=== PATIENT | female | born 1955 | race Caucasian/White ===

== ENCOUNTER → 2018-03-31 | Outpatient (CLI) | payer BC ==
--- NOTE | 2018-04-01 10:44 | MM ---
Reason for exam: screening (asymptomatic). Last mammogram was performed 1 year and 9 months ago. History: Patient is postmenopausal, has history of other cancer at age 53, and is nulliparous. Family history of breast cancer in paternal grandmother. Took estrogen for 1 year 1 month beginning at age 50. Physical Findings: A clinical breast exam by your physician is recommended on an annual basis and results should be correlated with mammographic findings. MG Screening Mammo w CAD Bilateral CC and MLO view(s) were taken. Prior study comparison: June 22, 2016, bilateral MG screening mammo w CAD. December 09, 2014, right breast MG work up mamm w CAD RT. The breast tissue is heterogeneously dense. This may lower the sensitivity of mammography. There is benign appearing round dystrophic calcifications bilaterally. There is chronic nodularity in the left breast. There is no discrete abnormality. ASSESSMENT: Benign, BI-RAD 2 RECOMMENDATION: Routine screening mammogram of both breasts in 1 year.
== END | disposition home or self-care (01) ==
LOC: RADMAMWWP 09:07
PROVIDERS: ATTEND Obstetrics & Gynecology
DX: Z12.31 Encounter for screening mammogram for malignant neoplasm of breast (principal)
CPT/HCPCS: 77067

== ENCOUNTER → 2019-08-04 | Outpatient (CLI) | payer BC ==
--- NOTE | 2019-08-07 10:57 | MM ---
Reason for exam: screening (asymptomatic). Last mammogram was performed 1 year and 4 months ago. History: Patient is postmenopausal, has history of other cancer at age 55, and is nulliparous. Family history of breast cancer in paternal grandmother. Took estrogen for 1 year 1 month beginning at age 50. Physical Findings: A clinical breast exam by your physician is recommended on an annual basis and results should be correlated with mammographic findings. MG Screening Mammo w CAD Bilateral CC and MLO view(s) were taken. Prior study comparison: March 31, 2018, bilateral MG screening mammo w CAD. June 22, 2016, bilateral MG screening mammo w CAD. There are scattered fibroglandular densities. No significant changes when compared with prior studies. ASSESSMENT: Benign, BI-RAD 2 RECOMMENDATION: Routine screening mammogram of both breasts in 1 year.
== END | disposition home or self-care (01) ==
LOC: RADMAMWWP 08:43
PROVIDERS: ATTEND Obstetrics & Gynecology
DX: Z12.31 Encounter for screening mammogram for malignant neoplasm of breast (principal)
CPT/HCPCS: 77067

== ENCOUNTER → 2020-08-30 | Outpatient (CLI) | payer BC ==
--- NOTE | 2020-08-31 11:01 | MM ---
Reason for exam: screening (asymptomatic). Last mammogram was performed 1 year and 1 month ago. History: Patient is postmenopausal, has history of other cancer at age 55, and is nulliparous. Family history of breast cancer in paternal grandmother. Took estrogen for 1 year 1 month beginning at age 50. Physical Findings: A clinical breast exam by your physician is recommended on an annual basis and results should be correlated with mammographic findings. MG Screening Mammo w CAD Bilateral CC and MLO view(s) were taken. Prior study comparison: August 04, 2019, bilateral MG screening mammo w CAD. March 31, 2018, bilateral MG screening mammo w CAD. June 22, 2016, bilateral MG screening mammo w CAD. The breast tissue is heterogeneously dense. This may lower the sensitivity of mammography. Finding: There are stable, fine, grouped/clustered calcifications in the posterior position of the right breast may have changed. New finding since June 22, 2016. ASSESSMENT: Incomplete: need additional imaging evaluation, BI-RAD 0 RECOMMENDATION: Special view mammogram of the right breast. If lesion persists on supplemental views, image directed ultrasound is recommended. [facility] will attempt to contact patient to return for supplemental views and ultrasound if indicated.
== END | disposition home or self-care (01) ==
LOC: RADMAMWWP 12:32
PROVIDERS: ATTEND Obstetrics & Gynecology
DX: Z12.31 Encounter for screening mammogram for malignant neoplasm of breast (principal)
CPT/HCPCS: 77067

== ENCOUNTER → 2020-09-15 | Outpatient (CLI) | payer BC ==
--- NOTE | 2020-09-16 10:32 | MM ---
Reason for exam: additional evaluation requested from abnormal screening. Last mammogram was performed 1 month ago. History: Patient is postmenopausal, has history of other cancer at age 55, and is nulliparous. Family history of breast cancer in paternal grandmother. Took estrogen for 1 year 1 month beginning at age 50. Physical Findings: Nurse did not find any significant physical abnormalities on exam. MG Work Up Mamm w CAD RT CC with magnification, LM with magnification, and LM view(s) were taken of the right breast. Prior study comparison: August 30, 2020, bilateral MG screening mammo w CAD. August 04, 2019, bilateral MG screening mammo w CAD. The breast tissue is heterogeneously dense. This may lower the sensitivity of mammography. Finding: There are increased, suspicious, coarse heterogeneous, grouped/clustered calcifications in the upper outer quadrant, posterior position of the right breast 9cm from the nipple. New finding since August 30, 2020 and August 04, 2019. These results were verbally communicated with the patient and result sheet given to the patient on 09/15/20. ASSESSMENT: Suspicious, BI-RAD 4 RECOMMENDATION: Stereotactic core biopsy of the right breast. (right breast calcification) Patient requests to call Dr. Oscar and discuss results. PRELIMINARY REPORT CALLED AND FAXED TO DR. OSCAR ON 09/16/20.
== END | disposition home or self-care (01) ==
LOC: RADMAMWWP 10:09
PROVIDERS: ATTEND Obstetrics & Gynecology
DX: R92.8 Other abnormal and inconclusive findings on diagnostic imaging of breast (principal)
CPT/HCPCS: 77065

== ENCOUNTER → 2020-10-03 | Day surgery (SDC) | payer BC ==
[2020-10-03 07:21] VITALS: RESP 16
[2020-10-03 08:37] VITALS: BP 115/78; PULSE 74; TEMP 98.1
--- NOTE | 2020-10-03 16:02 | MM ---
EXAMINATION TYPE: MG stereo VAD BX RT DATE OF EXAM: 10/03/2020 COMPARISON: 08/30/2020 CLINICAL HISTORY: Abnormal mammogram TECHNIQUE: Stereotactic guided core biopsy of right breast. FINDINGS: The procedure of stereotactic guided core biopsy was explained to the patient. Benefits, alternatives, and risks were discussed. An informed consent was then obtained. The shortness pathway for biopsy was chosen. Shortness pathway was lateral approach. Procedure was performed by radiology. Targeting was provided by radiology. Vacuum assisted biopsy device was utilized to obtain 7 core samples. Sample: Sample contains suspicious calcifications. The patient tolerated the procedure well without any immediate complication. The patient was kept in the radiology department for short stay after the procedure and then discharged home in stable condition. Post procedure mammogram : Post biopsy mammogram shows the clip to appear in satisfactory position relative to the targeted area of concern on the preprocedure images of the medial lateral view. There appears to be some migration of the clip approximately 1.2 cm deeper than targeted calcifications. There appear to be fewer targeted calcifications remaining following biopsy. IMPRESSION: 1. Successful stereotactic core biopsy right breast calcifications. Recommendations: 1. Recommendations are pending pathology results. Pathology Results: High Risk RIGHT BREAST, STEREOTACTIC CORE BIOPSY: Fibroadenomatoid hyperplasia with calcifications in a background of fibrocystic changes. Focal atypical lobular hyperplasia (ALH). Recommendation Surgical consult of the right breast. Note slight medial clip migration. Residual calcifications remain. MTDD
== END ==
LOC: RADMAMWWP 06:59
PROVIDERS: ATTEND Obstetrics & Gynecology
DX: N62 Hypertrophy of breast (principal); N60.11 Diffuse cystic mastopathy of right breast; R92.1 Mammographic calcification found on diagnostic imaging of breast; R92.8 Other abnormal and inconclusive findings on diagnostic imaging of breast
CPT/HCPCS: 88305; 19081; A4648; J2001

== ENCOUNTER → 2020-11-03 | Outpatient (CLI) | payer BC ==
[2020-11-03 14:23] VITALS: BP 121/75; PULSE 72; RESP 18; TEMP 98.3
--- NOTE | 2020-11-03 14:30 | P.GSHP ---
History of Present Illness H&P Date: 11/03/20 Chief Complaint: Stereotactic core biopsy on revealed focal atypical lobular hyper Nell is a 65 year old female seen in consultation for regarding a mammographic abnormality in her right breast for which she underwent stereotactic core biopsy which was positive for focal atypical lobular hyperplasia. The patient on underwent a bilateral screening mammogram. This revealed fine/groups clustered calcifications in the posterior position of the right breast which was considered to be a new finding since June 222015. She has had mammograms yearly since that time. Additional views were recommended. Additional views were performed and 2420, stereotactic right breast biopsy was recommended. This was performed on which revealed focal atypical lobular hyperplasia. The patient states that within the last 6 months she has noted that her right nipple started to become inverted. Prior to the mammogram she did not feel anything of concern in either breast. She is not complaining of any nipple discharge or skin changes. She is not complaining of any pain in her breast. Has not had any recent trauma or infection of the breast. She has not had any prior surgery to the breast. Caffeine: 1 diet coke/day nicotine: none, second hand smoke + chocolate: rare hormones: none Family History: patient basal cell cancer removed form face, aslo both of parents paternal grandmother: at 33 form breast cancer paternal aunt: breast cancer at 93 Hormonal History: menarche: 12 G0 menopause: 55 BCP: 10 years, IUD until menopause hormones: none Surgical history: 1. Bilateral knee arthroscopes 2. left hand carpal tunnel 3. lipoma right forearm 4. two lumbar lamenectomies 5. tonsil Medical history: None Social history: Nicotine: Negative, does have some secondhand smoke exposure Alcohol: Negative Drugs: Negative - Constitutional Constitutional: Denies chills, Denies fever - EENT Eyes: denies blurred vision, denies pain Ears: right: decreased hearing, deny: tinnitus Ears, nose, mouth and throat: Denies headache, Denies sore throat - Breasts Breasts: bilateral: as per HPI - Cardiovascular Cardiovascular: Denies chest pain, Denies shortness of breath - Respiratory Respiratory: Denies cough, Denies 7 - Gastrointestinal Gastrointestinal: Denies abdominal pain, Denies diarrhea, Denies nausea, Denies vomiting - Genitourinary (Female) Genitourinary: Denies dysuria, Denies hematuria - Menstruation Menstruation: Reports postmenopausal - Musculoskeletal Comment: arthritis knees and hips - Integumentary Integumentary: Denies pruritus, Denies rash - Neurological Neurological: Denies numbness, Denies weakness - Psychiatric Psychiatric: Denies anxiety, Denies depression - Endocrine Comment: intentional weight loss Endocrine: Reports weight change, Denies fatigue - Hematologic/Lymphatic Comment: none - Allergic/Immunologic Allergic/Immunologic: Reports as per HPI Past Medical History Past Medical History: No Reported History History of Any Multi-Drug Resistant Organisms: None Reported Past Surgical History: Orthopedic Surgery Additional Past Surgical History / Comment(s): back surgery. Left carpal tunnel. Thumb surgery Past Anesthesia/Blood Transfusion Reactions: No Reported Reaction Past Psychological History: No Psychological Hx Reported Smoking Status: Never smoker Past Alcohol Use History: Rare Past Drug Use History: None Reported Medications and Allergies Home Medications Medication Instructions Recorded Confirmed Type Calcium Carbonate [Calcium] 1,500 mg PO DAILY 11/03/20 11/03/20 History Celecoxib [CeleBREX] 1 tab PO DAILY 11/03/20 11/03/20 History Cholecalciferol [Vitamin D3 (25 10,000 chandler u PO DAILY 11/03/20 11/03/20 History Mcg = 1000 Iu)] Cyanocobalamin (Vitamin B-12) 1,000 mcg PO DAILY 11/03/20 11/03/20 History [Vitamin B-12] Famotidine [Pepcid] 20 mg PO DAILY 11/03/20 11/03/20 History Move-Free Ultra 1 tab PO DAILY 11/03/20 11/03/20 History Ospemifene [Osphena] 60 mg PO DAILY 11/03/20 11/03/20 History Oxybutynin Xl [Ditropan Xl] 5 mg PO DAILY 11/03/20 11/03/20 History Pyridoxine HCl (Vitamin B6) 100 mg PO DAILY 11/03/20 11/03/20 History [Vitamin B-6] Allergies Allergy/AdvReac Type Severity Reaction Status Date / Time No Known Allergies Allergy Verified 11/03/20 13:31 Surgical - Exam - General well developed, well nourished, no distress - Eyes normal ocular movement - ENT normal pinna - Neck no masses, trachea midline - Respiratory normal expansion, normal respiratory effort, clear to auscultation - Cardiovascular Rhythm: regular Heart Sounds: normal: S1, S2 - Abdomen Abdomen: soft - Integumentary normal turgor; multiple tattoos - Psychiatric oriented to time, oriented to person, oriented to place, speech is normal, memory intact breast exam: BRA 36G inspection: bilateral grade 2/3 ptosis palpation: right breast: Multiple positional exam fibrocystic changes, some mild increase fullness in the 12 o'clock position some mild nipple inversion Right axilla: No adenopathy of concern Left breast: Multiple positional exam fibrocystic changes no dominant masses or nodules of concern Left axilla: No adenopathy of concern Results mammogram reviewed and discussed with Dr. Bah from radiology; area of concern about 1 by 0.8 cm pathology reviewed Assessment and Plan Assessment: Impression: 1. ALH of the right breast on stero biopsy; the clip appears to have migrated slightly therefore the localization needs to be of residual calcifications rather than just the clip Plan: 1. Needle localization and excision of the right breast; the clip appears to have migrated slightly and therefore after review with Dr. Casillas is necessary that the localization be not only of the clip but also of any residual microcalcifications. 2. Possible mastopexy incision, with possible onco- plastic tissue transfer 3. Ultrasound behind the right nipple areolar complex secondary to some recent onset nipple inversion Risk and benefits of the procedure discussed with the patient. She understands and wishes to proceed. Markings were shown for possible donut mastopexy. She understands and wishes to proceed. She also understands there will be asymmetry between the breast and insurance may or may not cover a symmetry procedure for the contralateral side. Cc: Dr. Oscar, Dr. Richardson encounter 45 minutes; time spent in physical examination, review of medical records, and counselling. Case was discussed and reviewed with DR. Bah.
--- NOTE | 2020-11-04 11:59 | USB ---
Reason for exam: clinical finding. History: Patient is postmenopausal, has history of high-risk lesion on a previous biopsy at age 65, has history of other cancer at age 55, and is nulliparous. Family history of breast cancer in paternal grandmother. High risk MG stereo VAD BX RT of the right breast, October 03, 2020. Took estrogen for 1 year 1 month beginning at age 50. US Breast Limited RT Right limited breast ultrasound including focal area of concern, retroareolar and axilla demonstrates a 0.4 x 0.4 x 0.3cm oval, cystic lesion at 3 o'clock, duct ectasia at 4 o'clock, 9 o'clock, 11 o'clock and at the posterior nipple and a 1.5 x 2.4 x 0.9cm lymph node at the axilla. These results were verbally communicated with the patient and result sheet given to the patient on 11/03/20. ASSESSMENT: Benign, BI-RAD 2 RECOMMENDATION: Follow-up diagnostic mammogram of the right breast in 5 months. (March, 6 months from biopsy)
== END ==
LOC: WWCWWP 12:45
PROVIDERS: ATTEND Surgery
DX: N60.91 Unspecified benign mammary dysplasia of right breast (principal)

== ENCOUNTER 2020-11-29 07:06 | Day surgery (SDC) | payer BC ==
[2020-11-24 10:01] VITALS: BMI 25.8
[~2020-11-29 07:06] MED LIST: DEXAMETHASONE SOD PHOSPHATE 4 MG/ML 1 ML VIAL IV ONE; HEPARIN SODIUM,PORCINE/PF 5,000 UNIT/0.5 ML SYRINGE SQ PRN; HYDROmorphone 0.5 MG/0.5 ML SYRINGE IVP PRN; LACTATED RINGERS 1,000 ML IV SCH; LIDOCAINE 1% (10MG/ML) FOR IV START INTRADERMA PRN; METOCLOPRAMIDE 5 MG/ML 2 ML VIAL IVP PRN; ONDANSETRON 4 MG/2 ML VIAL IVP ONE; Pre Op ABX Message 1 EACH MISC MISCELLANE ONE
[2020-11-29 07:35] VITALS: RESP 16
[2020-11-29] MEDS ORDERED: ALPRAZolam 0.25 MG TAB ONE (07:58)
[2020-11-29] MEDS ORDERED: ALPRAZolam 0.25 MG TAB PO ONE (08:10)
[2020-11-29] MEDS ORDERED: LIDOCAINE 1% INJ 10MG/ML (20 ML MDV) SQ ONE ×2 (08:51→11:10)
[2020-11-29] MEDS ORDERED: ONDANSETRON 4 MG/2 ML VIAL ONE (10:11)
[2020-11-29] MEDS ORDERED: fentaNYL (PF) 50 MCG/ML 2 ML AMP ONE (10:11)
[2020-11-29] MEDS ORDERED: ePHEDrine SULFATE/0.9% NACL/PF 50 MG/5 ML SYRINGE IV ONE (10:11)
[2020-11-29] MEDS ORDERED: MIDAZOLAM 2 MG/2 ML VIAL ONE (10:11)
[2020-11-29] MEDS ORDERED: PROPOFOL 10 MG/ML 20 ML VIAL IV ONE (10:11)
[2020-11-29] MEDS ORDERED: SUCCINYLCHOLINE CHLORIDE 100 MG/5 ML SYR IV ONE (10:11)
[2020-11-29] MEDS ORDERED: LIDOCAINE 1% INJ 10MG/ML (20 ML MDV) ONE (10:11)
--- NOTE | 2020-11-29 11:14 | P.OP ---
Date of Procedure: 11/29/20 Preoperative Diagnosis: Atypical hyperplasia right breast Postoperative Diagnosis: Same Procedure(s) Performed: Right breast needle localization excisional lumpectomy with onco-plastic tissue transfer 48 cm Anesthesia: PATRICIAA Surgeon: Daysi Johns Estimated Blood Loss (ml): 5 IV fluids (ml): 500 Pathology: other (breast tissue) Condition: stable Disposition: same day Indications for Procedure: Core biopsy with atypia Operative Findings: Fibro fatty breast tissue Description of Procedure: The patient is a 65-year-old white female who had a biopsy of the right breast which revealed atypical hyperplasia. She is recommended to undergo a needle local excisional lumpectomy. She was taken first to the radiology suite where the area of concern was localized. She was then brought to the operating room and following induction of anesthesia the right breast was prepped and draped in a sterile fashion. An incision was made and carried down to the shaft of the needle. Surrounding tissue was excised. The defect was 6 x 3 cm in size for 18 cm. Following this the specimen was painted for orientation. Was sent to radiology and confirmation that the area of concern about removed was obtained. The patient then had mobilization of the superior flap 5 cm x 3 cm for 15 cm and inferior flap 5 cm x 2 cm for 15 cm. A total of 48 cm of tissue was mobilized. Assured that hemostasis was attained titanium clips were placed. The superior and inferior flaps were brought together using 3-0 Vicryl suture. The skin was closed using 3-0 Vicryl subcutaneous suture and 4-0 Monocryl. Steri-Strips were applied. The patient tolerated the procedure in stable condition. All instrument and sponge counts were correct at the end of the case.
--- NOTE | 2020-11-29 11:16 | P.DS ---
Providers Attending physician: Daysi Johns Primary care physician: Raquel Oscar Plan - Discharge Summary Discharge Rx Participant: No New Discharge Prescriptions: No Action Cholecalciferol [Vitamin D3 (25 Mcg = 1000 Iu)] 10,000 chandler u PO HS Oxybutynin Xl [Ditropan Xl] 5 mg PO HS Calcium Carbonate [Calcium] 1,500 mg PO HS Pyridoxine HCl (Vitamin B6) [Vitamin B-6] 100 mg PO HS Ospemifene [Osphena] 60 mg PO HS Move-Free Ultra 1 tab PO HS Cyanocobalamin (Vitamin B-12) [Vitamin B-12] 1,000 mcg PO HS Discharge Medication List Calcium Carbonate [Calcium] 1,500 mg PO HS 11/03/20 [History] Cholecalciferol [Vitamin D3 (25 Mcg = 1000 Iu)] 10,000 chandler u PO HS 11/03/20 [History] Cyanocobalamin (Vitamin B-12) [Vitamin B-12] 1,000 mcg PO HS 11/03/20 [History] Move-Free Ultra 1 tab PO HS 11/03/20 [History] Ospemifene [Osphena] 60 mg PO HS 11/03/20 [History] Oxybutynin Xl [Ditropan Xl] 5 mg PO HS 11/03/20 [History] Pyridoxine HCl (Vitamin B6) [Vitamin B-6] 100 mg PO HS 11/03/20 [History] Follow up Appointment(s)/Referral(s): Daysi Johns MD [STAFF PHYSICIAN] - 1 Week Activity/Diet/Wound Care/Special Instructions: May shower after [address] for 24 hours after discharge or if taking narcotic pain medication Wear bra at all times Discharge Disposition: HOME SELF-CARE
[2020-11-29 11:33] VITALS: TEMP 97
[2020-11-29] MEDS ORDERED: LACTATED RINGERS 1,000 ML IV ONE (12:41)
[2020-11-29 13:11] VITALS: BP 132/79; PULSE 91
--- NOTE | 2020-11-29 18:44 | MM ---
EXAMINATION TYPE: MG pre op needle loc RT, MG surgical specimen RT DATE OF EXAM: 11/29/2020 COMPARISON: 08/30/2020, 10/03/2020 CLINICAL HISTORY: 65-year-old female with high risk lesion, ALH on biopsy of the right breast TECHNIQUE: Needle localization with wire placement and surgical excision of area of concern in the right breast. FINDINGS: The procedure of needle localization with wire placement and than surgical excision was explained to the patient. Benefits, alternatives, and risks were discussed. An informed consent was then obtained. The shortest pathway for procedure was chosen. Shortest pathway was a lateral approach. The overlying skin was prepped and draped in usual sterile fashion. Lidocaine was used as anesthetic into the skin and subcutaneous tissue up to the level of area of concern. A 7 cm needle was used. It was placed via a lateral approach under mammographic guidance. Subsequent 90 degrees mammogram show the needle to be in satisfactory position relative to the targeted area. At this point, wire was placed and the needle was withdrawn. The wire was fixed to patient's skin. Images were marked for surgeon. The patient tolerated the procedure well without any immediate complication. The patient was kept in the radiology department for short stay after the procedure and then taken to surgery for surgical excision. Targeted residual calcifications, microclip, and wire are identified in specimen mammogram. The patient was kept in hospital for short stay after the procedure and then discharged home in stable condition. IMPRESSION: Successful, uncomplicated needle localization with wire placement and surgical excision of site of biopsy-proven ALH including clip and residual microcalcifications in the upper outer quadrant right breast, full pathology results to follow. Pathology Results: High Risk RIGHT BREAST, NEEDLE LOCALIZATION EXCISION: Extensive atypical lobular hyperplasia (ALH), fibrocystic changes including focal fibroadenomatoid hyperplasia with calcifications and previous biopsy site. Recommendation Follow up mammogram of the right breast in 6 months. ASHLIE
== END 2020-11-29 13:19 | disposition home or self-care (01) ==
LOC: OR 07:06
PROVIDERS: ATTEND Surgery
DX: N62 Hypertrophy of breast (principal); N60.11 Diffuse cystic mastopathy of right breast; Z77.22 Contact with and (suspected) exposure to environmental tobacco smoke (acute) (chronic); Z80.3 Family history of malignant neoplasm of breast; Z80.8 Family history of malignant neoplasm of other organs or systems
CPT/HCPCS: 19301; 88307; 76098; 19281; J2250; J1100; J2405; J2001; J3010; J0330; J2704; J1644

== ENCOUNTER → 2020-12-08 | Outpatient (CLI) | payer BC ==
[2020-12-08 08:46] VITALS: BP 121/74; PULSE 75; RESP 18; TEMP 98
--- NOTE | 2020-12-08 09:18 | P.PN ---
Progress Note - Text Progress Note Date: 12/08/20 Nell is a 65 year old white female status post a right breast needle localization excisional biopsy performed on . Pathology revealed extensive atypical lobular hyperplasia. No evidence of cancer was identified. Risk evaluation assessment was performed. Five-year risk with Maricruz model five-year risk: 4.9% with lifetime risk of 16.8% ANTOINETTE 10 year risk 16.7% versus lifetime risk of 26.6% Physical examination: Lungs: Clear Heart: Regular rate and rhythm Incision: Clean and dry Impression: 1. Atypical hyperplasia on open biopsy, incision clean and dry 2. High risk for development of breast cancer Plan: 1. Repeat right breast mammogram in 6 months with physician exam at that time 2. Appointment with medical oncology to discuss chemoprevention Cc: Dr. Ba Richardson ([place])
== END ==
LOC: WWCWWP 08:36
PROVIDERS: ATTEND Surgery
DX: N60.81 Other benign mammary dysplasias of right breast (principal)

== ENCOUNTER → 2021-05-26 | Outpatient (CLI) | payer BC ==
--- NOTE | 2021-05-26 14:40 | MM ---
Reason for exam: follow-up at short interval from prior study. Last mammogram was performed 8 months ago. History: Patient is postmenopausal, has history of high-risk lesion on a previous biopsy at age 65, has history of other cancer at age 55, and is nulliparous. Family history of breast cancer in paternal grandmother. High risk MG pre op needle loc RT of the right breast, November 29, 2020. High risk MG stereo VAD BX RT of the right breast, October 03, 2020. Took estrogen for 1 year 1 month beginning at age 50. Taking antineoplastic for 6 years. Physical Findings: Nurse did not find any significant physical abnormalities on exam. MG 3D Diag Mammo W/Cad RT CC and MLO view(s) were taken of the right breast. Prior study comparison: September 15, 2020, right breast MG work up mamm w CAD RT. August 30, 2020, bilateral MG screening mammo w CAD. The breast tissue is heterogeneously dense. This may lower the sensitivity of mammography. Finding: Architectural distortion in the right breast consistent with interval excision changes. There is a chronic nodularity in the right breast. These results were verbally communicated with the patient and result sheet given to the patient on 05/26/21. ASSESSMENT: Incomplete: need additional imaging evaluation, BI-RAD 0 RECOMMENDATION: Ultrasound. (palpable by nurse)
--- NOTE | 2021-05-26 14:41 | USB ---
Reason for exam: additional evaluation requested from abnormal screening. History: Patient is postmenopausal, has history of high-risk lesion on a previous biopsy at age 65, has history of other cancer at age 55, and is nulliparous. Family history of breast cancer in paternal grandmother. High risk MG pre op needle loc RT of the right breast, November 29, 2020. High risk MG stereo VAD BX RT of the right breast, October 03, 2020. Took estrogen for 1 year 1 month beginning at age 50. Taking antineoplastic for 6 years. US Breast Limited LT Left limited breast ultrasound including focal area of concern, retroareolar and axilla demonstrates a 0.4 x 0.4 x 0.2cm cystic lesion at 12 o'clock, benign cyst with stable mammographic correlation. These results were verbally communicated with the patient and result sheet given to the patient on 05/26/21. ASSESSMENT: Benign, BI-RAD 2 RECOMMENDATION: Return to routine screening mammogram schedule for both breasts. Back on schedule for August 2021.
== END | disposition home or self-care (01) ==
LOC: RADMAMWWP 12:35
PROVIDERS: ATTEND Surgery
DX: N60.02 Solitary cyst of left breast (principal); Z85.3 Personal history of malignant neoplasm of breast; Z80.3 Family history of malignant neoplasm of breast
CPT/HCPCS: 77061; 77065

== ENCOUNTER → 2021-06-15 | Outpatient (CLI) | payer BC ==
[2021-06-15 10:17] VITALS: BP 108/71; PULSE 70; RESP 18; TEMP 98.5
--- NOTE | 2021-06-15 10:32 | P.PN ---
Subjective Progress Note Date: 06/15/21 Principal diagnosis: Extensive atypical lobular hyperplasia/patient on raloxifene Nell is a 65 year old female seen in consultation for regarding a mammographic abnormality in her right breast for which she underwent stereotactic core biopsy which was positive for focal [place] [id number] underwent a bilateral screening mammogram. This revealed fine/groups clustered calcifications in the posterior position of the right breast which was considered to be a new finding since June 222015. She has had mammograms yearly since that time. Additional views were recommended. Additional views were performed on 2420, stereotactic right breast biopsy was recommended. This was performed on which revealed focal atypical lobular hyperplasia. The patient states that within the last 6 months she has noted that her right nipple started to become inverted. Prior to the mammogram she did not feel anything of concern in either breast. She is not complaining of any nipple discharge or skin changes. She is not complaining of any pain in her breast. Has not had any recent trauma or infection of the breast. She has not had any prior surgery to the breast. She underwent an needle local and excisional biopsy of the area of concern and [id number]. Pathology revealed extensive atypical lobular hyperplasia. She saw Dr. Wheatley and note from [address] is reviewed. An MRI of the breast was performed as well as the patient being started on raloxifene. She is tolerating the raloxifene without difficulty. A follow-up MRI in July is scheduled. The results from the MRI and they will be obtained. The patient had a right breast mammogram and [id number]. Although the right breast was felt to be stable an ultrasound was performed of the contralateral left breast. Ultrasound revealed 0.4 x 0.2 cm cystic lesion at 12:00. This was felt to be benign BIRADS 2 and to an return to routine screening mammogram of both breast in August 2021 was recommended. The patient has noticed some nodularity in her left breast at the site where the ultrasound was done however this has been there for many years and not changed. Caffeine: 1 diet coke/day nicotine: none, second hand smoke + chocolate: rare hormones: none/ on raloxifene Family History: patient basal cell cancer removed form face, aslo both of parents paternal grandmother: at 33 form breast cancer paternal aunt: breast cancer at 93 Hormonal History: menarche: 12 G0 menopause: 55 BCP: 10 years, IUD until menopause hormones: none Surgical history: 1. Bilateral knee arthroscopes 2. left hand carpal tunnel 3. lipoma right forearm 4. two lumbar lamenectomies 5. tonsil Medical history: None Social history: Nicotine: Negative, does have some secondhand smoke exposure Alcohol: Negative Drugs: Negative - Constitutional Constitutional: Denies chills, Denies fever - EENT Eyes: denies blurred vision, denies pain Ears: right: decreased hearing, deny: tinnitus Ears, nose, mouth and throat: Denies headache, Denies sore throat - Breasts Breasts: bilateral: as per HPI - Cardiovascular Cardiovascular: Denies chest pain, Denies shortness of breath - Respiratory Respiratory: Denies cough - Gastrointestinal Gastrointestinal: Denies abdominal pain, Denies diarrhea, Denies nausea, Denies vomiting - Genitourinary (Female) Genitourinary: Denies dysuria, Denies hematuria - Menstruation Menstruation: Reports postmenopausal - Musculoskeletal Comment: arthritis knees and hips - Integumentary Integumentary: Denies pruritus, Denies rash - Neurological Neurological: Denies numbness, Denies weakness - Psychiatric Psychiatric: Denies anxiety, Denies depression - Endocrine Comment: intentional weight loss Endocrine: Reports weight change, Denies fatigue - Hematologic/Lymphatic Comment: none - Allergic/Immunologic Allergic/Immunologic: Reports as per HPI Objective - Constitutional General appearance: Present: cooperative - EENT Eyes: Present: EOMI ENT: Present: hearing grossly normal - Neck Neck: Present: normal ROM - Respiratory Respiratory: bilateral: CTA - Cardiovascular Rhythm: regular Heart sounds: normal: S1, S2 - Gastrointestinal General gastrointestinal: Present: soft - Integumentary Integumentary: Present: normal turgor - Musculoskeletal Musculoskeletal: Present: gait normal - Psychiatric Psychiatric: Present: A&O x's 3, appropriate affect, intact judgment & insight - Additional findings Additional findings: Breast Exam: BRA: 36 F as per patient appears like a C/D cup Inspection: Well-healed scar right breast, bilateral grade 2 ptosis, right breast nipple inversion Palpation: Right breast: Multiple positional exam fibrocystic changes no dominant masses or nodules of concern Right axilla: No adenopathy of concern Left breast: Multiple positional exam fibrocystic changes no dominant masses or nodules of concern Left axilla: No adenopathy of concern Assessment and Plan Assessment: Impression: 1. Patient with extensive atypical lobular hyperplasia on open biopsy, patient has been seen by medical oncology and is presently on tamoxifen 2. Patient is a bilateral MRI in July 3. Fibrocystic breast changes 4. Chronic right nipple inversion Plan: 1. Follow up after bilateral MRI in July 2. bilateral mammogram in 6 months with appointment at that time 3. Bone density indicated recommendation for raloxifen and which patient is presently taking cc: Dr. Oscar, Dr. Richardson
== END ==
LOC: WWCWWP 10:06
PROVIDERS: ATTEND Surgery
DX: N60.91 Unspecified benign mammary dysplasia of right breast (principal); N60.11 Diffuse cystic mastopathy of right breast; N60.12 Diffuse cystic mastopathy of left breast; N64.59 Other signs and symptoms in breast

== ENCOUNTER → 2021-08-24 | Outpatient (CLI) | payer BC ==
[2021-08-24 15:57] VITALS: BP 121/80; PULSE 77; RESP 16; TEMP 98.2
== END ==
LOC: WWCWWP 15:40
PROVIDERS: ATTEND Surgery
DX: Z53.9 Procedure and treatment not carried out, unspecified reason (principal)

== ENCOUNTER → 2022-01-15 | Outpatient (CLI) | payer BC ==
--- NOTE | 2022-01-15 19:23 | MM ---
Reason for Exam: Hx of benign breast biopsy. Last mammogram was performed 1 year(s) and 5 month(s) ago. Patient History: Menarche at age 12. Patient has no children. Postmenopausal. Other cancer, age 55. Estrogen for 1 year, 1 month, from age 50 until age 52. 11/29/2020, High risk Core Biopsy on the right side. 10/03/2020, High risk Core Biopsy on the right side. Paternal grandmother had breast cancer. Risk Values: Maricruz 5 year model risk: 2.8%. NCI Lifetime model risk: 9.5%. Tissue Density: The breast tissue is heterogeneously dense. This may lower the sensitivity of mammography. Findings: Analyzed By CAD. Postsurgical changes right breast after excision for biopsy-proven ALH. Within the right breast, central outer aspect, there is an irregular asymmetric density on the CC view that becomes less defined and additional images, likely postoperative changes. Six-month follow-up recommended to reassess this area. Within the left breast, centrally on the MLO view, there is an asymmetric density which persists on spot MLO but disperses on true lateral. Superimposition shadow is suspected. Six-month follow-up recommended to reassess this area. Otherwise, no significant change. Overall Assessment: Probably benign, BI-RAD 3 Management: Diagnostic Mammogram of both breasts in 6 months. 1. Six-month follow-up bilateral diagnostic mammograms to reassess the asymmetric densities. 2. Patient should continue monthly self breast exams. 3. This exam should not preclude additional follow-up of suspicious palpable abnormalities. Electronically signed and approved by: Nena Elizabeth M.D. Radiologist
== END | disposition home or self-care (01) ==
LOC: RADMAMWWP 10:06
PROVIDERS: ATTEND Surgery
DX: R92.8 Other abnormal and inconclusive findings on diagnostic imaging of breast (principal); Z78.0 Asymptomatic menopausal state; Z80.3 Family history of malignant neoplasm of breast
CPT/HCPCS: 77062; 77066

== ENCOUNTER → 2022-01-18 | Outpatient (CLI) | payer BC ==
[2022-01-18 16:19] VITALS: BP 122/76; PULSE 82; RESP 17; TEMP 98.3
--- NOTE | 2022-01-18 16:41 | P.PN ---
Subjective Progress Note Date: 01/18/22 Principal diagnosis: atypical lobular hyperplasia Extensive atypical lobular hyperplasia/patient on raloxifene Nell is a 65 year old female seen in consultation for regarding a mammographic abnormality in her right breast for which she underwent stereotactic core biopsy which was positive for focal atypical lobular hyperplasia. The patient on underwent a bilateral screening mammogram. This revealed fine/groups clustered calcifications in the posterior position of the right breast which was considered to be a new finding since June 222015. She has had mammograms yearly since that time. Additional views were recommended. Additional views were performed on 2420, stereotactic right breast biopsy was recommended. This was performed on which revealed focal atypical lobular hyperplasia. The patient states that within the last 6 months she has noted that her right nipple started to become inverted. Prior to the mammogram she did not feel anything of concern in either breast. She is not complaining of any nipple discharge or skin changes. She is not complaining of any pain in her breast. Has not had any recent trauma or infection of the breast. She has not had any prior surgery to the breast. She underwent an needle local and excisional biopsy of the area of concern on . Pathology revealed extensive atypical lobular hyperplasia. She saw Dr. [place] and note from [id number] is reviewed. An MRI of the breast was performed as well as the patient being started on raloxifene. She is tolerating the raloxifene without difficulty. A follow-up MRI in July is scheduled. The results from the MRI and they will be obtained. The patient had a right breast mammogram on [id number]. Although the right breast was felt to be stable an ultrasound was performed of the contralateral left breast. Ultrasound revealed 0.4 x 0.2 cm cystic lesion at 12:00. This was felt to be benign BIRADS 2 and to an return to routine screening mammogram of both breast in August 2021 was recommended. The patient has noticed some nodularity in her left breast at the site where the ultrasound was done however this has been there for many years and not changed. 01-18-22 The patient had bilateral mammogram on 01-15-22; repeat bilatearl mammogram in 6 [address] Note from Dr. Wheatley 12-22-21 reviewed. She has known atypical lobular hyperplasia and is on Evista. She does not feel any new lumps masses or nodules of concern in either breast. Breat MRI in 12-21 benign. Caffeine: 1 diet coke/day nicotine: none, second hand smoke + chocolate: rare hormones: none/ on raloxifene Family History: patient basal cell cancer removed form face, aslo both of parents paternal grandmother: at 33 form breast cancer paternal aunt: breast cancer at 93 Hormonal History: menarche: 12 G0 menopause: 55 BCP: 10 years, IUD until menopause hormones: none Surgical history: 1. Bilateral knee arthroscopes 2. left hand carpal tunnel 3. lipoma right forearm 4. two lumbar lamenectomies 5. tonsil Medical history: None Social history: Nicotine: Negative, does have some secondhand smoke exposure Alcohol: Negative Drugs: Negative - Constitutional Constitutional: Denies chills, Denies fever - EENT Eyes: denies blurred vision, denies pain Ears: right: decreased hearing, deny: tinnitus Ears, nose, mouth and throat: Denies headache, Denies sore throat - Breasts Breasts: bilateral: as per HPI - Cardiovascular Cardiovascular: Denies chest pain, Denies shortness of breath - Respiratory Respiratory: Denies cough - Gastrointestinal Gastrointestinal: Denies abdominal pain, Denies diarrhea, Denies nausea, Denies vomiting - Genitourinary (Female) Genitourinary: Denies dysuria, Denies hematuria - Menstruation Menstruation: Reports postmenopausal - Musculoskeletal Comment: arthritis knees and hips - Integumentary Integumentary: Denies pruritus, Denies rash - Neurological Neurological: Denies numbness, Denies weakness - Psychiatric Psychiatric: Denies anxiety, Denies depression - Endocrine Comment: intentional weight loss Endocrine: Reports weight change, Denies fatigue - Hematologic/Lymphatic Comment: none - Allergic/Immunologic Allergic/Immunologic: Reports as per HPI Objective - Vital Signs Vital signs: Vital Signs Temp 98.3 F 01/18/22 16:16 Pulse 82 01/18/22 16:16 Resp 17 01/18/22 16:16 BP 122/76 01/18/22 16:16 Pulse Ox 99 01/18/22 16:16 FiO2 Intake & Output 01/17/22 01/18/22 01/18/22 18:59 06:59 18:59 Weight 70.307 kg - Constitutional General appearance: Present: cooperative - EENT Eyes: Present: EOMI ENT: Present: hearing grossly normal - Neck Neck: Present: normal ROM - Respiratory Respiratory: bilateral: CTA - Cardiovascular Heart sounds: normal: S1, S2 - Integumentary Integumentary: Present: normal turgor - Musculoskeletal Musculoskeletal: Present: gait normal - Psychiatric Psychiatric: Present: A&O x's 3, appropriate affect, intact judgment & insight - Additional findings Additional findings: Breat Exam: BRA:36F Inspection: bilateral grade 3 ptosis; chronic right nipple inversion after biops y in the right breast, well-healed scar right breast from prior surgery palpation: right breast: Multi-positional exam no dominant masses or nodules of concern, in the upper inner area there is some slight nodularity which is non-worrisome Right axilla: No adenopathy of concern Left breast: Multi-positional exam fibrocystic changes no dominant masses or nodules of concern Left axilla: No adenopathy of concern Assessment and Plan Assessment: Atypical lobular hyperplasia patient on Evista Bilateral mammogram 6622 recommend repeat bilateral mammogram in 6 months Fibrocystic breast changes Nothing which would warrant interventional biopsy at this time Plan: Bilateral mammogram in 6 months with physician exam at that time Bilateral breast MRI in July 2022 Patient to follow up sooner any questions or concerns Continue Evista Cc: Dr. Richardson, Dr. Wheatley
== END ==
LOC: WWCWWP 16:06
PROVIDERS: ATTEND Surgery
DX: N60.12 Diffuse cystic mastopathy of left breast (principal); N60.01 Solitary cyst of right breast; N60.02 Solitary cyst of left breast

== ENCOUNTER → 2022-06-15 | Outpatient (CLI) | payer BC ==
--- NOTE | 2022-06-18 08:19 | BMR ---
EXAMINATION TYPE: MR breast BILAT wo/w con DATE OF EXAM: 06/15/2022 COMPARISON: Prior 3-D mammogram January 15, 2022 BI-RADS 3. Outside MRI bilateral breasts July 21 HISTORY: HYPERTROPHY OF BREAST. Prior abnormal mammogram. High risk biopsy right breast 2020. TECHNIQUE: A series of fat and water weighted images in the long and short axis views of both breasts are obtained in conjunction with dynamic contrast MRI with subtraction technique. The patient was i njected with 7 mL intravenous Gadavist gadolinium contrast. Three-dimensional and additional postpr ocessing imaging is created on independent workstation and reviewed during official interpretation of this study. FINDINGS: Heterogeneously dense fibroglandular tissue is redemonstrated bilaterally. Benign-appearing bilateral axillary lymph nodes are redemonstrated. No concerning cystic masses or fluid collections in either breast are noted. Dynamic postcontrast imaging shows mild symmetric background enhancement. With regards to the left breast. No abnormal skin thickening is seen. No pathologic enhancement or en hancing masses are noted. The chest wall is intact. With regards to the right breast there is redemonstration artifact from surgical clips in the middle to posterior depth slightly outer upper aspect. There is stable oval area of enhancement anteriorly s ubareolar region measuring 9 x 6 mm. There is suggestion of a feeding vessel with rapid uptake and wa shout suggesting possible vascular malformation or AVM. This in retrospect has a similar appearance t o prior study. No new suspicious enhancing masses or pathologic enhancement. Chest wall is intact. IMPRESSION: No new or enlarging enhancing masses to suggest invasive malignancy in either breast. One might consider targeted ultrasound to further evaluate the subareolar region right breast. BI-RADS 2 benign findings left breast. BI-RADS 3 probable benign findings right breast. Recommendation: Patient is due for follow-up bilateral diagnostic mammogram in one to 2 months to diana ssess the areas of concern on most recent mammogram. I would consider advise targeted ultrasound right breast subareolar region at that time.
== END | disposition home or self-care (01) ==
LOC: RADMRIMAIN 11:29
PROVIDERS: ATTEND Internal Medicine Hematology & Oncology
DX: N62 Hypertrophy of breast (principal)
CPT/HCPCS: 77049; A9585

== ENCOUNTER → 2022-07-19 | Outpatient (CLI) | payer BC ==
--- NOTE | 2022-07-23 10:39 | MM ---
Reason for Exam: Follow-up at short interval from prior study. Last screening mammogram was performed 6 month(s) ago. Patient History: Menarche at age 12. Patient has no children. Postmenopausal. Other cancer, age 55. Estrogen for 1 year, 1 month, from age 50 until age 52. 11/29/2020, High risk Core Biopsy on the right side. 10/03/2020, High risk Core Biopsy on the right side. Paternal grandmother had breast cancer. Risk Values: Maricruz 5 year model risk: 2.8%. NCI Lifetime model risk: 9.1%. Prior Study Comparison: 08/04/2019 Bilateral Screening Mammogram, [facility]. 08/30/2020 Bilateral Screening Mammogram, [facility]. 09/15/2020 Right Diagnostic Mammogram, [facility]. 11/03/2020 Right Diagnostic Ultrasound, [facility]. 05/26/2021 Right Diagnostic Mammogram, [facility]. 05/26/2021 Left Diagnostic Ultrasound, [facility]. 01/15/2022 Bilateral MG 3D diag mammo w/cad SANCHEZ, [facility]. 06/15/2022 Bilateral MR breast bilat wo/w con, [facility]. Tissue Density: The breast tissue is heterogeneously dense. This may lower the sensitivity of mammography. Findings: Analyzed By CAD. Postsurgical change right breast. The area of asymmetric density central outer view is unchanged from 6 months prior. Ongoing short interval follow-up recommended. Benign oil cyst calcifications on the left. Chronic nodularity superior left breast. Additional nodular area of subareolar asymmetric density left MLO view is also unchanged. Overall Assessment: Probably benign, BI-RAD 3 Management: Diagnostic Mammogram of the right breast in 6 months. 1. Patient should continue monthly self breast exams. 2. A clinical breast exam by your physician is recommended on an annual basis. 3. This exam should not preclude additional follow-up of suspicious palpable abnormalities. Results were given to the patient verbally at the time of exam. Electronically signed and approved by: Nena Elizabeth M.D. Radiologist
== END | disposition home or self-care (01) ==
LOC: RADMAMWWP 14:40
PROVIDERS: ATTEND Surgery
DX: Z85.3 Personal history of malignant neoplasm of breast (principal); Z78.0 Asymptomatic menopausal state; Z80.3 Family history of malignant neoplasm of breast
CPT/HCPCS: 77062; 77066

== ENCOUNTER → 2022-07-26 | Outpatient (CLI) | payer BC ==
[2022-07-26 09:36] VITALS: BP 105/72; PULSE 96; RESP 12; TEMP 98.7
--- NOTE | 2022-07-26 09:59 | P.PN ---
Subjective Progress Note Date: 07/26/22 Principal diagnosis: atypical lobular hyperplasia 07-26-22 Nell is a 67-year-old female who is been followed for atypical lobular hyperplasia since November 2020. She underwent a bilateral screening mammogram in August 2020 which led to a stereotactic core biopsy of the right breast. This revealed atypical lobular hyperplasia. She subsequently underwent a needle localization and excisional biopsy of that area and [address]. This again revealed atypical lobular hyperplasia. She has been seen by Dr. Wheatley and has been on raloxifene for chemoprevention[place] [address]. This was felt to be benign thyroid cyst 3 a repeat right breast mammogram in 6 months was recommended. Additionally [place] [address] to a bilateral breast MRI. On the MRI she did not have any filling of concern in the left breast and probable benign findings in the right breast. Both of these have been personally reviewed. Patient was seen by Dr. Wheatley in June 2022 and she is going to continue on the raloxifene. The patient is not complaining of any new lumps masses or nodules of concern in either breast. Caffeine: 1 diet coke/day nicotine: none, second hand smoke + chocolate: rare hormones: none/ on raloxifene Family History: patient basal cell cancer removed form face, aslo both of parents paternal grandmother: at 33 form breast cancer paternal aunt: breast cancer at 93 Hormonal History: menarche: 12 G0 menopause: 55 BCP: 10 years, IUD until menopause hormones: none Surgical history: 1. Bilateral knee arthroscopes 2. left hand carpal tunnel 3. lipoma right forearm 4. two lumbar lamenectomies 5. tonsil Medical history: None Social history: Nicotine: Negative, does have some secondhand smoke exposure Alcohol: Negative Drugs: Negative - Constitutional Constitutional: Denies chills, Denies fever - EENT Eyes: denies blurred vision, denies pain Ears: right: decreased hearing, deny: tinnitus Ears, nose, mouth and throat: Denies headache, Denies sore throat - Breasts Breasts: bilateral: as per HPI - Cardiovascular Cardiovascular: Denies chest pain, Denies shortness of breath - Respiratory Respiratory: Denies cough - Gastrointestinal Gastrointestinal: Denies abdominal pain, Denies diarrhea, Denies nausea, Denies vomiting - Genitourinary (Female) Genitourinary: Denies dysuria, Denies hematuria - Menstruation Menstruation: Reports postmenopausal - Musculoskeletal Comment: arthritis knees and hips - Integumentary Integumentary: Denies pruritus, Denies rash - Neurological Neurological: Denies numbness, Denies weakness - Psychiatric Psychiatric: Denies anxiety, Denies depression - Endocrine Comment: intentional weight loss Endocrine: Reports weight change, Denies fatigue - Hematologic/Lymphatic Comment: none - Allergic/Immunologic Allergic/Immunologic: Reports as per HPI Objective - Vital Signs Vital signs: Vital Signs Temp 98.7 F 07/26/22 09:30 Pulse 96 07/26/22 09:30 Resp 12 07/26/22 09:30 BP 105/72 07/26/22 09:30 Pulse Ox 99 07/26/22 09:30 FiO2 Intake & Output 07/25/22 07/26/22 07/26/22 18:59 06:59 18:59 Weight 72.575 kg - Exam BMI: 25.1 - Constitutional General appearance: Present: cooperative - EENT Eyes: Present: EOMI ENT: Present: hearing grossly normal - Neck Neck: Present: normal ROM - Respiratory Respiratory: bilateral: CTA - Cardiovascular Rhythm: regular Heart sounds: normal: S1, S2 - Gastrointestinal General gastrointestinal: Present: soft - Integumentary Integumentary: Present: normal turgor - Musculoskeletal Musculoskeletal: Present: gait normal - Additional findings Additional findings: Breast Exam: BRA: 36DDD Inspection: bilateral grade 3 ptosis chronic right nipple inversion, right breast smaller than left breast palpation: right breast: Multi-positional exam fibrocystic changes no dominant masses or nodules of concern, well-healed scar from prior biopsy Right axilla: No adenopathy of concern Left breast: Multi-positional exam fibrocystic changes no dominant masses or nodules of concern Left axilla: No adenopathy of concern Assessment and Plan Assessment: Impression: Atypical lobular hyperplasia patient high risk for breast cancer on raloxifene Fibrocystic breast changes Bilateral mammogram was done [id number] Plan: Repeat right breast mammogram in 6 months right breast mammogram in 6 months with exam at that time CC: Dr. Richardson
== END ==
LOC: WWCWWP 09:25
PROVIDERS: ATTEND Surgery
DX: N60.11 Diffuse cystic mastopathy of right breast (principal); N60.12 Diffuse cystic mastopathy of left breast; Z79.810 Long term (current) use of selective estrogen receptor modulators (SERMs)

== ENCOUNTER → 2023-01-18 | Outpatient (CLI) | payer BC ==
[2023-01-18 16:06] VITALS: BP 135/74; PULSE 82; RESP 17; TEMP 97.9
--- NOTE | 2023-01-18 16:18 | P.PN ---
Subjective Progress Note Date: 01/18/23 Principal diagnosis: atypical lobular hyperplasia atypical lobular hyperplasia 07-26-22 Nell is a 67-year-old female who is been followed for atypical lobular hyperplasia since November 2020. She underwent a bilateral screening mammogram in August 2020 which led to a stereotactic core biopsy of the right breast. This revealed atypical lobular hyperplasia. She subsequently underwent a needle localization and excisional biopsy of that area on . This again revealed atypical lobular hyperplasia. She has been seen by Dr. Wheatley and has been on raloxifene for chemoprevention. She underwent on bilateral breast MRI, which was ordered by Dr. Wheatley. On the MRI she did not have any finding of concern in the left breast and probable benign findings in the right breast. Both of these have been personally reviewed. She underwent a bilateral mammogram as per recommendation from the MRI on . She was noted to have what was felt to be a benign oil cyst in the right breast and a repeat right breast mammogram in 6 months was recommended. Patient was seen by Dr. Wheatley in June 2022 and she is going to continue on the raloxifene. The patient is not complaining of any new lumps masses or nodules of concern in either breast. 01-18-23 The patient had a right breast mammogram on 01-18-23 which was BIRAD 2 and repeat bilateral mammogram in June 2023. At this time she is not complaining of any new lumps masses or nodules of concern in either breast. She does have some question about some skin dimpling in the lateral aspect of the right breast. He is continuing to take the raloxifene and doing well with this. Caffeine: 1 diet coke/day nicotine: none, second hand smoke + chocolate: rare hormones: none/ on raloxifene Family History: patient basal cell cancer removed form face, aslo both of parents paternal grandmother: at 33 form breast cancer paternal aunt: breast cancer at 93 Hormonal History: menarche: 12 G0 menopause: 55 BCP: 10 years, IUD until menopause hormones: none Surgical history: 1. Bilateral knee arthroscopes 2. left hand carpal tunnel 3. lipoma right forearm 4. two lumbar lamenectomies 5. tonsil Medical history: None Social history: Nicotine: Negative, does have some secondhand smoke exposure Alcohol: Negative Drugs: Negative - Constitutional Constitutional: Denies chills, Denies fever - EENT Eyes: denies blurred vision, denies pain Ears: right: decreased hearing, deny: tinnitus Ears, nose, mouth and throat: Denies headache, Denies sore throat - Breasts Breasts: bilateral: as per HPI - Cardiovascular Cardiovascular: Denies chest pain, Denies shortness of breath - Respiratory Respiratory: Denies cough - Gastrointestinal Gastrointestinal: Denies abdominal pain, Denies diarrhea, Denies nausea, Denies vomiting - Genitourinary (Female) Genitourinary: Denies dysuria, Denies hematuria - Menstruation Menstruation: Reports postmenopausal - Musculoskeletal Comment: arthritis knees and hips - Integumentary Integumentary: Denies pruritus, Denies rash - Neurological Neurological: Denies numbness, Denies weakness - Psychiatric Psychiatric: Denies anxiety, Denies depression - Endocrine Comment: intentional weight loss Endocrine: Reports weight change, Denies fatigue - Hematologic/Lymphatic Comment: none - Allergic/Immunologic Allergic/Immunologic: Reports as per HPI Objective - Vital Signs Vital signs: Intake & Output 01/17/23 01/18/23 01/18/23 18:59 06:59 18:59 Weight 72.575 kg - Constitutional General appearance: Present: cooperative - EENT Eyes: Present: EOMI ENT: Present: hearing grossly normal - Neck Neck: Present: normal ROM - Respiratory Respiratory: bilateral: CTA - Cardiovascular Rhythm: regular Heart sounds: normal: S1, S2 - Gastrointestinal General gastrointestinal: Present: soft - Integumentary Integumentary: Present: normal turgor - Musculoskeletal Musculoskeletal: Present: gait normal - Psychiatric Psychiatric: Present: A&O x's 3, appropriate affect, intact judgment & insight - Additional findings Additional findings: Breast Exam: BRA: 36DDD Inspection: bilateral grade 3 ptosis chronic right nipple inversion, right breast smaller than left breast palpation: right breast: Multi-positional exam fibrocystic changes no dominant masses or nodules of concern, well-healed scar from prior biopsy Right axilla: No adenopathy of concern Left breast: Multi-positional exam fibrocystic changes no dominant masses or nodules of concern Left axilla: No adenopathy of concern Assessment and Plan Assessment: Impression: Atypical lobular hyperplasia patient high risk for breast cancer on raloxifene Fibrocystic breast changes [place] [id number], recommended right breast repeat at 6 months done 01-18-23 BIRAD 2 Plan: Repeat bilatearl mammogram in June 2023 with appointment at that time Continue raloxifene CC: Dr. Richardson
== END ==
LOC: WWCWWP 14:15
PROVIDERS: ATTEND Surgery
DX: N60.81 Other benign mammary dysplasias of right breast (principal); N60.11 Diffuse cystic mastopathy of right breast; Z80.3 Family history of malignant neoplasm of breast

== ENCOUNTER → 2023-01-18 | Outpatient (CLI) | payer BC ==
--- NOTE | 2023-01-18 14:44 | MM ---
Reason for Exam: Follow-up at short interval from prior study. Last screening mammogram was performed 6 month(s) ago. Patient History: Menarche at age 12. Patient has no children. Postmenopausal. Estrogen for 1 year, 1 month, from age 50 until age 52. 11/29/2020, High risk Core Biopsy on the right side. 10/03/2020, High risk Core Biopsy on the right side. Paternal grandmother had breast cancer. Risk Values: Maricruz 5 year model risk: 2.8%. NCI Lifetime model risk: 9.1%. Prior Study Comparison: 05/26/2021 Right Diagnostic Mammogram, [facility]. 01/15/2022 Bilateral MG 3D diag mammo w/cad SANCHEZ, [facility]. 07/19/2022 Bilateral MG 3D diag mammo w/cad SANCHEZ, [facility]. Tissue Density: Right: There are scattered fibroglandular densities. Findings: Analyzed By CAD. Stable appearance of fibroglandular tissue. Postsurgical clips in the right breast. No new suspicious masses, calcifications or distortions. Overall Assessment: Benign, BI-RAD 2 Management: Screening Mammogram of both breasts in 6 months. Results were given to the patient verbally at the time of exam. Patient should continue monthly self-breast exams. A clinical breast exam by your physician is recommended on an annual basis. This exam should not preclude additional follow-up of suspicious palpable abnormalities. Note on Maricruz scores and lifetime risk: 1. A Maricruz score greater than 3% is considered moderate risk. If this is the case, consider specialist referral to assess eligibility for a risk reducing agent. 2. If overall lifetime risk for the development of breast cancer is 20% or higher, the patient may qualify for future screening with alternating mammogram and breast MRI. Electronically signed and approved by: Mark Orr DO
== END | disposition home or self-care (01) ==
LOC: RADMAMWWP 14:16
PROVIDERS: ATTEND Surgery
DX: R92.8 Other abnormal and inconclusive findings on diagnostic imaging of breast (principal); Z78.0 Asymptomatic menopausal state; Z80.3 Family history of malignant neoplasm of breast
CPT/HCPCS: 77061; 77065

== ENCOUNTER → 2023-02-01 | Outpatient (CLI) | payer BC ==
--- NOTE | 2023-02-01 11:21 | USB ---
Reason for Exam: Follow-up at short interval from prior study. Patient History: Menarche at age 12. Patient has no children. Postmenopausal. Estrogen for 1 year, 1 month, from age 50 until age 52. 11/29/2020, High risk Core Biopsy on the right side. 10/03/2020, High risk Core Biopsy on the right side. Paternal grandmother had breast cancer. Risk Values: Maricruz 5 year model risk: 2.8%. NCI Lifetime model risk: 9.1%. Technique: Method: Targeted. Prior Study Comparison: 01/15/2022 Bilateral MG 3D diag mammo w/cad SANCEHZ, [facility]. 07/19/2022 Bilateral MG 3D diag mammo w/cad SANCHEZ, [facility]. 01/18/2023 Right MG 3D diag mammo w/cad RT, [facility]. Findings: The upper inner quadrant of the right breast, the axilla of the right breast and the retroareolar of the right breast were scanned. No solid or cystic masses are identified.. Overall Assessment: Benign, BI-RAD 2 Management: Diagnostic Mammogram of both breasts in 6 months. A clinical breast exam by your physician is recommended on an annual basis and results should be correlated with mammographic findings. This exam should not preclude additional follow-up of suspicious palpable abnormalities. Results were given to the patient verbally at the time of exam. Electronically signed and approved by: Matt Casillas M.D. Radiologis
== END | disposition home or self-care (01) ==
LOC: RADUSWWP 09:27
PROVIDERS: ATTEND Surgery
DX: R92.8 Other abnormal and inconclusive findings on diagnostic imaging of breast (principal); Z78.0 Asymptomatic menopausal state; Z80.3 Family history of malignant neoplasm of breast

== ENCOUNTER → 2023-06-11 | Outpatient (CLI) | payer BC ==
[2023-06-11 09:58] VITALS: BP 137/82; PULSE 70; RESP 17; TEMP 98.3
--- NOTE | 2023-06-11 10:48 | P.HPOB ---
History of Present Illness H&P Date: 06/11/23 Chief Complaint: The patient is here for her routine gynecologic exam and ma mmogram. This is a 68-year-old G0 with an LMP of 2007. The patient is here to establish with this office. It has been about 2-1/2 years since her last pelvic exam. She is without gynecologic complaints and denies any postmenopausal bleeding. Review of Systems She believes she has gained about 5 pounds over the past year. She denies respiratory, cardiac, or GI problems. Past Medical History Past Medical History: Osteoarthritis (OA) Additional Past Medical History / Comment(s): Hx fractured tibia right leg Aug 2020, still sore at times. Hyperplasia of the right [id number]. Osteopenia. 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 History of Any Multi-Drug Resistant Organisms: None Reported Past Surgical History: Back Surgery, Breast Surgery, Orthopedic Surgery Additional Past Surgical History / Comment(s): Left carpal tunnel, thumb surgery. Right breast lumpectomy 2020 Past Anesthesia/Blood Transfusion Reactions: No Reported Reaction Past Psychological History: No Psychological Hx Reported Smoking Status: Never smoker Past Alcohol Use History: Rare (1 drink per year.) Past Drug Use History: None Reported Additional History: She has been since 1978 and is no longer sexually active. 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 - Past Family History Mother Family Medical History: No Reported History Additional Family Medical History / Comment(s): in her 90s Father Family Medical History: CVA/TIA Additional Family Medical History / Comment(s): . Paternal grandmother had breast cancer. Medications and Allergies Home Medications Medication Instructions Recorded Confirmed Type Calcium Carbonate [Calcium] 1,500 mg PO HS 11/03/20 06/11/23 History Cholecalciferol [Vitamin D3 (25 10,000 chandler u PO HS 11/03/20 06/11/23 History Mcg = 1000 Iu)] Cyanocobalamin (Vitamin B-12) 1,000 mcg PO HS 11/03/20 06/11/23 History [Vitamin B-12] Pyridoxine HCl (Vitamin B6) 100 mg PO HS 11/03/20 06/11/23 History [Vitamin B-6] Ferrous Sulfate [Feosol] 325 mg PO HS 06/15/21 06/11/23 History Raloxifene [Evista] 60 mg PO HS 06/15/21 06/11/23 History Allergies Allergy/AdvReac Type Severity Reaction Status Date / Time No Known Allergies Allergy Verified 06/11/23 09:53 Exam Vital Signs Temp Pulse Resp BP Pulse Ox 06/11/23 09:54 98.3 F 70 17 137/82 97 Intake and Output 06/10/23 06/11/23 06/11/23 22:59 06:59 14:59 Other: Weight 75.75 kg Height 5 feet 7 inches, weight 167 pounds, BMI 26.2. This is a well-developed well-nourished white female who is alert and oriented times 3 in no acute distress. HEENT: Within normal limits. NECK: Supple without mass or thyromegaly. CHEST AND LUNGS: Clear to auscultation. HEART: Regular rate and rhythm. BREASTS: Are without mass or discharge. The right breast has a inverted nipple. The patient states it is been this way since her lumpectomy in 2020. Dr. Lorenzo Hills is aware of this. Her breasts are followed by Dr. Lorenzo Hills. AXILLARY EXAM: Negative for adenopathy. BACK: Negative for CVA tenderness. ABDOMEN: Soft, nontender, without palpable masses. PELVIC EXAM: Normal external genitalia with mild to moderate atrophy. Cervix and vagina appear normal with mild to moderate atrophy. The cervix is fairly flush with the back of the vagina consistent with atrophy There is no unusual discharge. There is no evidence of prolapse. The uterus is midposition, nongravid size and nontender. There are no palpable adnexal masses or tenderness. RECTAL EXAM: Rectovaginal exam is negative for mass or tenderness and is negative for occult blood. EXTREMITIES: Nontender. IMPRESSION: 1. 68-year-old menopausal female with normal gynecologic exam. 2. History of osteopenia. PLAN: 1. Pap smear was performed. We will continue Pap smear testing until we have had 3 negative Pap smears within a 10 year period. 2. Self breast awareness was discussed with the patient. We have also discussed symptoms associated with inflammatory breast cancer. 3. Bilateral mammogram will be done today. This was ordered by Dr. Lorenzo Hills. She will continue to see Dr. Ventura on for her breast health. She states she probably will be doing mammograms yearly as well as MRIs yearly. 4. Osteoporosis prevention was discussed. I have stressed the importance of adequate calcium, vitamin D and regular exercise. Recommended amounts of calcium and vitamin D were also discussed. Her last bone density test was done in 2020. We will plan on repeating the bone density test in 1 year. She is on Evista because of the osteopenia as well as her increased risk for breast cancer. 5. She was advised to return in one year for her annual well woman exam.
== END ==
LOC: WWCWWP 09:48
PROVIDERS: ATTEND Obstetrics & Gynecology
DX: M85.80 Other specified disorders of bone density and structure, unspecified site (principal); M19.90 Unspecified osteoarthritis, unspecified site; N60.89 Other benign mammary dysplasias of unspecified breast; Z80.3 Family history of malignant neoplasm of breast; Z78.0 Asymptomatic menopausal state

== ENCOUNTER → 2023-06-11 | Outpatient (CLI) | payer BC | END | disposition home or self-care (01) | LOC: RADMAMWWP 09:46 | PROVIDERS: ATTEND Surgery | DX: Z53.9 Procedure and treatment not carried out, unspecified reason (principal) ==

== ENCOUNTER → 2023-06-21 | Outpatient (CLI) | payer BC ==
--- NOTE | 2023-06-21 13:16 | P.PN ---
Subjective Progress Note Date: 06/21/23 Principal diagnosis: high risk breast cancer Subjective Progress Note Date: 06-21-23 Principal diagnosis: atypical lobular hyperplasia Nell is a 67-year-old female who is been followed for atypical lobular hyperplasia since November 2020. She underwent a bilateral screening mammogram in August 2020 which led to a stereotactic core biopsy of the right breast. This revealed atypical lobular hyperplasia. She subsequently underwent a needle localization and excisional biopsy of that area on . This again revealed atypical lobular hyperplasia. She has been seen by Dr. Wheatley and has been on ra loxifene for chemoprevention. She underwent on bilateral breast MRI, which was ordered by Dr. Wheatley. On the MRI she did not have any finding of concern in the left breast and probable benign findings in the right breast. Both of these have been personally reviewed. She underwent a bilateral mammogram as per recommendation from the MRI on . She was noted to have what was felt to be a benign oil cyst in the right breast and a repeat right breast mammogram in 6 months was recommended. Patient was seen by Dr. Wheatley in June 2022 and she is going to continue on the raloxifene. The patient is not complaining of any new lumps masses or nodules of concern in either breast. The patient had a bilateral mammogram performed on [id number] this led to a diagnostic right breast mammogram which was performed on [id number]. This was felt to be benign BIRADS 2 bilateral mammogram in 12 months is recommended. Time she is not complaining of any new lumps masses or nodules of concern in either breast. She continues to be on raloxifene without difficulty. She continues to follow with Dr. Garvey. It should be noted as result of the MRI which she had done on and ul trasound of the retroareolar region on the right was performed which did not show any lesions of concern. She has an MRI today of both breast to be done at [facility]. Maricruz five-year model is 2.9% NCI lifetime risk 8.7% Caffeine: 1 diet coke/day nicotine: none, second hand smoke + chocolate: rare hormones: none/ on raloxifene Family History: patient basal cell cancer removed form face, aslo both of parents paternal grandmother: at 33 form breast cancer paternal aunt: breast cancer at 93 Hormonal History: menarche: 12 G0 menopause: 55 BCP: 10 years, IUD until menopause hormones: none Surgical history: 1. Bilateral knee arthroscopes 2. left hand carpal tunnel 3. lipoma right forearm 4. two lumbar lamenectomies 5. tonsil Medical history: None Social history: Nicotine: Negative, does have some secondhand smoke exposure Alcohol: Negative Drugs: Negative - Constitutional Constitutional: Denies chills, Denies fever - EENT Eyes: denies blurred vision, denies pain Ears: right: decreased hearing, deny: tinnitus Ears, nose, mouth and throat: Denies headache, Denies sore throat - Breasts Breasts: bilateral: as per HPI - Cardiovascular Cardiovascular: Denies chest pain, Denies shortness of breath - Respiratory Respiratory: Denies cough - Gastrointestinal Gastrointestinal: Denies abdominal pain, Denies diarrhea, Denies nausea, Denies vomiting - Genitourinary (Female) Genitourinary: Denies dysuria, Denies hematuria - Menstruation Menstruation: Reports postmenopausal - Musculoskeletal Comment: arthritis knees and hips - Integumentary Integumentary: Denies pruritus, Denies rash - Neurological Neurological: Denies numbness, Denies weakness - Psychiatric Psychiatric: Denies anxiety, Denies depression - Endocrine Comment: intentional weight loss Endocrine: Reports weight change, Denies fatigue - Hematologic/Lymphatic Comment: none - Allergic/Immunologic Allergic/Immunologic: Reports as per HPI Objective - Constitutional General appearance: Present: cooperative - EENT Eyes: Present: EOMI ENT: Present: hearing grossly normal - Neck Neck: Present: normal ROM - Respiratory Respiratory: bilateral: CTA - Cardiovascular Heart sounds: normal: S1, S2 - Integumentary Integumentary: Present: normal turgor - Musculoskeletal Musculoskeletal: Present: gait normal - Psychiatric Psychiatric: Present: A&O x's 3, appropriate affect, intact judgment & insight - Additional findings Additional findings: Breast Exam: BRA: 36DDD Inspection: bilateral grade 3 ptosis chronic right nipple inversion, right breast smaller than left breast palpation: right breast: Multi-positional exam fibrocystic changes no dominant masses or nodules of concern, well-healed scar from prior biopsy Right axilla: No adenopathy of concern Left breast: Multi-positional exam fibrocystic changes no dominant masses or nodules of concern Left axilla: No adenopathy of concern Assessment and Plan Assessment: Impression: Atypical lobular hyperplasia patient high risk for breast cancer on raloxifene Fibrocystic breast changes Bilateral mammogram was done 06-11-23 than right breast daignostic 06-30-23: BIRAD 2 will get a MRI of breast today Plan: Repeat bilatearl mammogram in June 2024 with appointment at that time Continue raloxifene MRI of the breast today to call with report CC: Dr. Richardson
== END ==
LOC: WWCWWP 12:33
PROVIDERS: ATTEND Surgery
DX: N60.11 Diffuse cystic mastopathy of right breast (principal); N60.89 Other benign mammary dysplasias of unspecified breast; Z80.3 Family history of malignant neoplasm of breast; Z77.22 Contact with and (suspected) exposure to environmental tobacco smoke (acute) (chronic)

== ENCOUNTER → 2023-06-21 | Outpatient (CLI) | payer BC ==
--- NOTE | 2023-06-21 11:25 | MM ---
Reason for Exam: Additional evaluation requested from abnormal screening. Last screening mammogram was performed less than 1 month ago. Patient History: Menarche at age 12. Patient has no children. Postmenopausal. Estrogen for 1 year, 1 month, from age 50 until age 52. 11/29/2020, High risk Core Biopsy on the right side. 10/03/2020, High risk Core Biopsy on the right side. Paternal grandmother had breast cancer, age 33. Risk Values: Maricruz 5 year model risk: 2.9%. NCI Lifetime model risk: 8.7%. Tissue Density: Right: The breast tissue is heterogeneously dense. This may lower the sensitivity of mammography. Findings: Analyzed By CAD. No suspicious group of microcalcifications within either breast. Postsurgical clips identified within the right breast. Asymmetry within the central right breast on the MLO view does not persist with compression. Overall Assessment: Benign, BI-RAD 2 Management: Screening Mammogram of both breasts in 1 year. A clinical breast exam by your physician is recommended on an annual basis and results should be correlated with mammographic findings. This exam should not preclude additional follow-up of suspicious palpable abnormalities. Results were given to the patient verbally at the time of exam. Note on Maricruz scores and lifetime risk: 1. A Maricruz score greater than 3% is considered moderate risk. If this is the case, consider specialist referral to assess eligibility for a risk reducing agent. If overall lifetime risk for the development of breast cancer is 20% or higher, the patient may qualify for future screening with alternating mammogram and breast MRI. Electronically signed and approved by: Andrea Foley D.O.
== END | disposition home or self-care (01) ==
LOC: RADMAMWWP 10:57
PROVIDERS: ATTEND Internal Medicine Hematology & Oncology
DX: R92.331 Mammographic heterogeneous density, right breast (principal); Z78.0 Asymptomatic menopausal state; Z80.3 Family history of malignant neoplasm of breast
CPT/HCPCS: 77061; 77065

== ENCOUNTER → 2024-06-23 | Outpatient (CLI) | payer BC, MEDICARE ==
[2024-06-23 10:18] VITALS: BP 121/79; PULSE 81; RESP 17; TEMP 98.1
--- NOTE | 2024-06-23 11:08 | P.HPOB ---
History of Present Illness H&P Date: 06/23/24 Chief Complaint: The patient is here for her routine gynecologic exam and ma mmogram. This is a 69-year-old G0 with an LMP of 2007. The patient is without gynecologic complaints. Review of Systems The patient's weight has been stable over the last year. She denies respiratory, cardiac, or G.I. problems. Past Medical History Past Medical History: Osteoarthritis (OA) Additional Past Medical History / Comment(s): Hx fractured tibia right leg Aug 2020, still sore at times. Hyperplasia of the right [id number]. Osteopenia. 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 History of Any Multi-Drug Resistant Organisms: None Reported Past Surgical History: Back Surgery, Breast Surgery, Orthopedic Surgery Additional Past Surgical History / Comment(s): Left carpal tunnel, thumb surgery. Right breast lumpectomy 2020 Past Anesthesia/Blood Transfusion Reactions: No Reported Reaction Past Psychological History: No Psychological Hx Reported Smoking Status: Never smoker Past Alcohol Use History: Rare (1 drink per year.) Past Drug Use History: None Reported Additional History: She has been since 1978 and is not sexually active. 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 - Past Family History Mother Family Medical History: No Reported History Additional Family Medical History / Comment(s): in her 90s Father Family Medical History: CVA/TIA Additional Family Medical History / Comment(s): . Paternal grandmother had breast cancer. Medications and Allergies Home Medications Medication Instructions Recorded Confirmed Type Calcium Carbonate [Calcium] 1,500 mg PO HS 11/03/20 06/23/24 History Cholecalciferol [Vitamin D3 (25 10,000 chandler u PO HS 11/03/20 06/23/24 History Mcg = 1000 Iu)] Cyanocobalamin (Vitamin B-12) 1,000 mcg PO HS 11/03/20 06/23/24 History [Vitamin B-12] Pyridoxine HCl (Vitamin B6) 100 mg PO HS 11/03/20 06/23/24 History [Vitamin B-6] Ferrous Sulfate [Feosol] 325 mg PO HS 06/15/21 06/23/24 History Raloxifene [Evista] 60 mg PO HS 06/15/21 06/23/24 History Allergies Allergy/AdvReac Type Severity Reaction Status Date / Time No Known Allergies Allergy Verified 06/23/24 10:16 Exam Vital Signs Temp Pulse Resp BP Pulse Ox 06/23/24 10:16 98.1 F 81 17 121/79 98 Intake and Output 06/22/24 06/23/24 06/23/24 22:59 06:59 14:59 Other: Weight 74.843 kg Height 5 feet 7 inches, weight 165 pounds, BMI 25.8. This is a well-developed well-nourished right female who is alert and oriented times 3 in no acute distress. HEENT: Within normal limits. NECK: Supple without mass or thyromegaly. CHEST AND LUNGS: Clear to auscultation. HEART: Regular rate and rhythm. BREASTS: Are without mass or discharge. There is right nipple inversion. She states it has been this way since her lumpectomy in 2020. AXILLARY EXAM: Negative for adenopathy. BACK: Negative for CVA tenderness. ABDOMEN: Soft, nontender, without palpable masses. PELVIC EXAM: Normal external genitalia with mild atrophy. Cervix and vagina appear normal with mild atrophy. There is no unusual discharge. There is no evidence of prolapse. The uterus is midposition, nongravid size and nontender. There are no palpable adnexal masses or tenderness. RECTAL EXAM: Rectovaginal exam is negative for mass or tenderness and is negative for occult blood. EXTREMITIES: Nontender. IMPRESSION: 1. 77-year-old menopausal female with normal gynecologic exam. 2. History of osteopenia on raloxifene per her oncologist. PLAN: 1. Pap smear was deferred since she had a negative Pap smear on 06/11/2023. This is her first Pap smear done here. We will continue Pap smear screening until we have 3 negative Pap smears within a 10-year period. 2. Self breast awareness was discussed with the patient. We have also discussed symptoms associated with inflammatory breast cancer. 3. Screening mammogram was done today. 4. Osteoporosis prevention was discussed. I have stressed the importance of adequate calcium, vitamin D and regular exercise. Recommended amounts of calcium and vitamin D were also discussed. I have recommended bone density testing since it has been more than 2 years since her last 1. The order slip was given to the patient for this. She will continue to take raloxifene as prescribed by her oncologist. 5. She was advised to return in one year for her annual well woman exam.
== END ==
LOC: WWCWWP 09:50
PROVIDERS: ATTEND Obstetrics & Gynecology
DX: Z01.419 Encounter for gynecological examination (general) (routine) without abnormal findings (principal); M85.80 Other specified disorders of bone density and structure, unspecified site; Z78.0 Asymptomatic menopausal state; Z80.3 Family history of malignant neoplasm of breast

== ENCOUNTER → 2024-06-23 | Outpatient (CLI) | payer BC, MEDICARE ==
--- NOTE | 2024-06-27 15:27 | MM ---
Reason for Exam: Screening (asymptomatic). Last mammogram was performed 1 year(s) and 1 month(s) ago. Patient History: Menarche at age 12. Patient has no children. Postmenopausal. Estrogen for 1 year, 1 month, from age 50 until age 52. 11/29/2020, High risk Core Biopsy on the right side. 10/03/2020, High risk Core Biopsy on the right side. Paternal grandmother had breast cancer, age 33. Risk Values: Maricruz 5 year model risk: 2.9%. NCI Lifetime model risk: 8.3%. Prior Study Comparison: 01/18/2023 Right MG 3D diag mammo w/cad RT, [facility]. 06/11/2023 Bilateral MG 3D screening mammo w/cad, [facility]. 06/21/2023 Right MG 3D work up w/cad RT, [facility]. Tissue Density: The breasts are heterogeneously dense, which may obscure small masses. Findings: Analyzed By CAD. The pattern is symmetrical. There is a new focal asymmetric density left medial lateral oblique view just below the midline anterior mid position. This may been present previously but is less dense. Additional workup is recommended. No suspicious groups of microcalcifications, spiculated or lobular masses, architectural distortion or other secondary signs of malignancy are mammographically apparent. Overall Assessment: Incomplete: need additional imaging evaluation, BI-RAD 0 Management: Diagnostic Mammogram of the left breast. A negative mammogram report should not preclude additional follow up of suspicious palpable abnormalities. Patient should continue monthly self breast exam. A clinical breast exam by your physician is recommended on an annual basis and results should be correlated with mammographic findings. Note on Maricruz scores and lifetime risk: 1. A Maricruz score greater than 3% is considered moderate risk. If this is the case, consider specialist referral to assess eligibility for a risk reducing agent. 2. If overall lifetime risk for the development of breast cancer is 20% or higher, the patient may qualify for future screening with alternating mammogram and breast MRI. [facility], , 06/27/2024 3:24 PM. Electronically signed and approved by: Nawaf Bailey D.O. Radiologis
== END | disposition home or self-care (01) ==
LOC: RADMAMWWP 09:47
PROVIDERS: ATTEND Surgery
DX: Z12.31 Encounter for screening mammogram for malignant neoplasm of breast (principal); R92.333 Mammographic heterogeneous density, bilateral breasts; Z78.0 Asymptomatic menopausal state; Z80.3 Family history of malignant neoplasm of breast
CPT/HCPCS: 77063; 77067

== ENCOUNTER → 2024-06-25 | Outpatient (CLI) | payer MEDICARE ==
--- NOTE | 2024-06-28 22:24 | BD ---
EXAMINATION TYPE: Axial Bone Density DATE OF EXAM: 06/25/2024 CLINICAL HISTORY: 69 years old Female. ICD-10 CODE: Z78.0 ASYMP RAE STATE , Additional History: Height: 67 Weight: 162.5 FRAX RISK QUESTIONS: Alcohol (3 or more units per day): no Family History (Parent hip fracture): no Glucocorticoids (More than 3mos): no (Ex: prednisone, prednisolone, methylprednisolone, dexamethasone, and hydrocortisone). History of Fracture in Adulthood: yes Secondary Osteoporosis: 1. Type 1 Diabetes: no 2. Hyperthyroidism: no 3. Menopause before 45: no 4. Malnutrition: no 5. Chronic liver disease: no Rheumatoid Arthritis: no Current Tobacco Use: no RISK FACTORS HISTORY OF: History of Wrist Fracture: left When: age 24 Surgery to Spine/Hip(right/left)/Wrist (right/left): l-4 l-5 laminectomy When: 1992 MEDICATIONS: Osteoporosis Medications: evista How Lon 1/2 years EXAM MEASUREMENTS: Bone mineral densitometry was performed using the [employer] System. Bone mineral density about the R hip (g/cm2): 0.740 Bone mineral density about the L hip (g/cm2): 0.734 T Score values are as follows: -----R Neck: -1.7 -----L Neck: -2.1 -----R Total: -2.1 -----L Total: -2.2 Z Score values are as follows: -----R Neck: -0.2 -----L Neck: -0.6 -----R Total: -0.9 -----L Total: -0.9 Bone mineral density has: DECREASED -25.6 % since study of: 05.08.2006 Bone mineral density about the R Wrist (g/cm2): 0.510 T Score values are as follows: -----Dist. R+U: -3.8 -----Prox. R+U: -1.6 -----Radius total: -2.7 Z Score values are as follows: -----Dist. R+U: -1.9 -----Prox. R+U: 0.2 -----Radius total: -0.9 Bone mineral density : baseline FRAX%s: The graph provided illustrates a 19.9% chance for a major osteoporotic fx and a 4.2% chance f or the hips probability for fx in 10 years time. IMPRESSION: Osteoporosis (T Score less than -2.5). There is increased fracture risk and therapy is usually indicated based on age. Re-Screen 1-2 years. NOTE: T-SCORE=SD OF THE YOUNG ADULT MEAN. [facility], , 06/28/2024 10:22 PM
== END | disposition home or self-care (01) ==
LOC: RADBDWWP 12:41
PROVIDERS: ATTEND Obstetrics & Gynecology
DX: M81.0 Age-related osteoporosis without current pathological fracture (principal); Z78.0 Asymptomatic menopausal state
CPT/HCPCS: 77080

== ENCOUNTER → 2024-06-25 | Outpatient (CLI) | payer BC, MEDICARE ==
[2024-06-25 13:01] VITALS: BP 122/73; PULSE 67; RESP 16; TEMP 98.1
--- NOTE | 2024-06-25 13:07 | P.PN ---
Subjective Progress Note Date: 06/25/24 Principal diagnosis: high risk breast cancer 06/25/24 Principal diagnosis: high risk breast cancer Subjective Progress Note Date: 06-21-23 Principal diagnosis: atypical lobular hyperplasia Nell is a 67-year-old female who is been followed for atypical lobular hyperplasia since November 2020. She underwent a bilateral screening mammogram in August 2020 which led to a stereotactic core biopsy of the right breast. This revealed atypical lobular hyperplasia. She subsequently underwent a needle localization and excisional biopsy of that area on . This again revealed atypical lobular hyperplasia. She has been seen by Dr. Wheatley and has been on raloxifene for chemoprevention. She underwent on bilateral breast MRI, which was ordered by Dr. Wheatley. On the MRI she did not have any finding of concern in the left breast and probable benign findings in the right breast. Both of these have been personally reviewed. She underwent a bilateral mammogram as per recommendation from the MRI on . She was noted to have what was felt to be a benign oil cyst in the right breast and a repeat right breast mammogram in 6 months was recommended. Patient was seen by Dr. Wheatley in June 2022 and she is going to continue on the raloxifene. The patient is not complaining of any new lumps masses or nodules of concern in either breast. The patient had a bilateral mammogram performed on [id number] this led to a diagnostic right breast mammogram which was performed on [id number]. This was felt to be benign BIRADS 2 bilateral mammogram in 12 months is recommended. Time she is not complaining of any new lumps masses or nodules of concern in either breast. She continues to be on raloxifene without difficulty. She continues to follow with Dr. Garvey. It should be noted as result of the MRI which she had done on and ultrasound of the retroareolar region on the right was performed which did not show any lesions of concern. She has an MRI of both breast to be done at [facility] in June 2023 was told no lesions of concern note DR. Wheatley 06-25-23 MRI 06-21-23 (-); continue evista, approximately [address] Wheatley and he will plan to keep her on the Evista for another year and a half Caffeine: 1 diet coke/day nicotine: none, second hand smoke + chocolate: rare hormones: none/ on raloxifene Family History: patient basal cell cancer removed form face, aslo both of parents paternal grandmother: at 33 form breast cancer paternal aunt: breast cancer at 93 Hormonal History: menarche: 12 G0 menopause: 55 BCP: 10 years, IUD until menopause hormones: none Surgical history: 1. Bilateral knee arthroscopes 2. left hand carpal tunnel 3. lipoma right forearm 4. two lumbar lamenectomies 5. tonsil Medical history: None Social history: Nicotine: Negative, does have some secondhand smoke exposure Alcohol: Negative Drugs: Negative - Constitutional Constitutional: Denies chills, Denies fever - EENT Eyes: denies blurred vision, denies pain Ears: right: decreased hearing, deny: tinnitus Ears, nose, mouth and throat: Denies headache, Denies sore throat - Breasts Breasts: bilateral: as per HPI - Cardiovascular Cardiovascular: Denies chest pain, Denies shortness of breath - Respiratory Respiratory: Denies cough - Gastrointestinal Gastrointestinal: Denies abdominal pain, Denies diarrhea, Denies nausea, Denies vomiting - Genitourinary (Female) Genitourinary: Denies dysuria, Denies hematuria - Menstruation Menstruation: Reports postmenopausal - Musculoskeletal Comment: arthritis knees and hips - Integumentary Integumentary: Denies pruritus, Denies rash - Neurological Neurological: Denies numbness, Denies weakness - Psychiatric Psychiatric: Denies anxiety, Denies depression - Endocrine Comment: intentional weight loss Endocrine: Reports weight change, Denies fatigue - Hematologic/Lymphatic Comment: none - Allergic/Immunologic Allergic/Immunologic: Reports as per HPI Objective - Constitutional General appearance: Present: cooperative - EENT Eyes: Present: EOMI ENT: Present: hearing grossly normal - Neck Neck: Present: normal ROM - Respiratory Respiratory: bilateral: CTA - Cardiovascular Rhythm: regular Heart sounds: normal: S1, S2 - Integumentary Integumentary: Present: normal turgor - Musculoskeletal Musculoskeletal: Present: gait normal - Psychiatric Psychiatric: Present: A&O x's 3, appropriate affect, intact judgment & insight - Additional findings Additional findings: Breast Exam: BRA: [id number] Inspection: bilateral grade 3 ptosis chronic right nipple inversion, right breast smaller than left breast palpation: right breast: Multi-positional exam fibrocystic changes no dominant masses or nodules of concern, well-healed scar from prior biopsy Right axilla: No adenopathy of concern Left breast: Multi-positional exam fibrocystic changes no dominant masses or nodules of concern Left axilla: No adenopathy of concern Assessment and Plan Assessment: Impression: Atypical lobular hyperplasia patient high risk for breast cancer on raloxifene Fibrocystic breast changes Bilateral mammogram was done 06-22-24, recommend MLO and ML left breast compression views personally reveiwed and discussed with Dr. Heather TUTTLE 0 Plan: left breast MLO and ML compression views then follow up Continue raloxifene CC: Dr. Richardson
== END ==
LOC: WWCWWP 12:39
PROVIDERS: ATTEND Surgery
DX: R92.8 Other abnormal and inconclusive findings on diagnostic imaging of breast (principal); N60.91 Unspecified benign mammary dysplasia of right breast; N60.11 Diffuse cystic mastopathy of right breast; N60.12 Diffuse cystic mastopathy of left breast; Z80.3 Family history of malignant neoplasm of breast

== ENCOUNTER → 2024-07-01 | Outpatient (CLI) | payer MEDICARE ==
--- NOTE | 2024-07-01 10:05 | MM ---
Reason for Exam: Additional evaluation requested from prior study. Last screening mammogram was performed less than 1 month ago. Patient History: Menarche at age 12. Patient has no children. Postmenopausal. Estrogen for 1 year, 1 month, from age 50 until age 52. 11/29/2020, High risk Core Biopsy on the right side. 10/03/2020, High risk Core Biopsy on the right side. Paternal grandmother had breast cancer, age 33. Risk Values: Maricruz 5 year model risk: 2.9%. NCI Lifetime model risk: 8.3%. Prior Study Comparison: 06/11/2023 Bilateral MG 3D screening mammo w/cad, [facility]. 06/21/2023 Right MG 3D work up w/cad RT, [facility]. 06/23/2024 Bilateral MG 3D screening mammo w/cad, [facility]. Tissue Density: Left: The breasts are heterogeneously dense, which may obscure small masses. Findings: Analyzed By CAD. No persistent nodular density or mass. Summation density from left MLO view. Overall Assessment: Benign, BI-RAD 2 Management: Screening Mammogram of both breasts in 1 year. . Results were given to the patient verbally at the time of exam. Patient should continue monthly self-breast exams. A clinical breast exam by your physician is recommended on an annual basis. This exam should not preclude additional follow-up of suspicious palpable abnormalities. Note on Maricruz scores and lifetime risk: 1. A Maricruz score greater than 3% is considered moderate risk. If this is the case, consider specialist referral to assess eligibility for a risk reducing agent. 2. If overall lifetime risk for the development of breast cancer is 20% or higher, the patient may qualify for future screening with alternating mammogram and breast MRI. [facility], , 07/01/2024 10:02 AM. Electronically signed and approved by: Matt Casillas M.D. Radiologis
--- NOTE | 2024-07-02 10:13 | P.PN ---
Progress Note - Text Progress Note Date: 07/02/24 OUTPATIENT FOLLOW-UP NOTE TEST(S)/RESULTS: Screening mammogram on 06/23/2024 did require a left breast workup and this was done on 07/01/2024 and was benign. 1 year screening mammogram was recommended. Bone density test done on 07/01/2024 shows osteoporosis. METHOD OF NOTIFICATION: The patient was notified by phone on 07/02/2024 PATIENT COMMENTS: The patient states she had a bone density test done within the last few years at [facility]. DIAGNOSIS: Osteoporosis on raloxifene. Benign mammogram with workup. DISCUSSION: I have stressed the importance of getting adequate calcium, vitamin D, and regular exercise. She will see if she can get a hold of the report from her [place] bone density test so we can try to compare the studies. I think raloxifene will be a good choice because of her history of right breast hyperplasia. PLAN: As above. She was advised to return in one year for her annual well woman exam.
== END | disposition home or self-care (01) ==
LOC: RADMAMWWP 09:42
PROVIDERS: ATTEND Surgery
DX: R92.8 Other abnormal and inconclusive findings on diagnostic imaging of breast (principal); Z78.0 Asymptomatic menopausal state; Z80.3 Family history of malignant neoplasm of breast; R92.332 Mammographic heterogeneous density, left breast
CPT/HCPCS: 77065; G0279; 77061